=== PATIENT | male | born 1995 ===

== ENCOUNTER 2016-08-11 12:04 | Emergency (ER) | payer MEDICAID ==
[2016-08-11 12:05] VITALS: BMI 34.0
--- NOTE | 2016-08-11 12:32 | ED PDOC ---
Arrival/HPI - General Chief Complaint: Lower Extremity Problem/Injury Time Seen by Provider: 08/11/16 12:27 Historian: Patient - History of Present Illness Narrative History of Present Illness (Text): 08/11/16 12:29 Patient is a 20 yo male states that half hour prior to arrival he "turned quickly" and "felt a crack" in his right knee. Complained of immediate pain and when he puts weight on his right leg in specific positions he experiences pain. Denies hip or ankle pain. Denies fall or direct impact. Denies numbness or weakness. Past Medical History - Past History Past History: No Previous - Infectious Disease Hx of Infectious Diseases: None - Tetanus Immunization Tetanus Immunization: Up to Date - Psychiatric Hx Depression: No Hx Emotional Abuse: No Hx Physical Abuse: No Hx Substance Use: No - Past Surgical History Past Surgical History: No Previous - Anesthesia Hx Anesthesia: No Hx Anesthesia Reactions: No Hx Malignant Hyperthermia: No - Suicidal Assessment Feels Threatened In Home Enviroment: No Family/Social History Family/Social History: Unknown Family HX Smoking Status: Never Smoked Hx Alcohol Use: No Hx Substance Use: No Allergies/Home Meds Allergies/Adverse Reactions: Allergies SHRIMPS Allergy (Uncoded 08/11/16 12:20) RASH Review of Systems - Review of Systems Constitutional: absent: Fevers Respiratory: absent: SOB Cardiovascular: absent: Chest Pain Gastrointestinal: absent: Abdominal Pain Musculoskeletal: Other (right knee pain, no hip or calf or ankle pain). absent : Back Pain, Neck Pain Skin: absent: Rash Neurological: absent: Headache, Dizziness, Focal Weakness Endocrine: absent: Polyuria Physical Exam Vital Signs Reviewed: Yes Vital Signs Temp Pulse Resp BP Pulse Ox 08/11/16 12:15 98.1 F 85 19 132/71 100 Temperature: Afebrile Appearance: Positive for: Well-Appearing, Uncomfortable Pain Distress: Mild - Systems Exam Head: Present: Atraumatic Pupils: Present: PERRL Neck: Present: Normal Range of Motion Respiratory/Chest: No: Respiratory Distress Cardiovascular: Present: Regular Rate and Rhythm Abdomen: No: Tenderness Lower Extremity: Present: NORMAL PULSES, Neurovascularly Intact, Other (patient with pain to medial aspect of right knee and anterior right knee, no clicking, able to flex and extend knee against resistance, has some pain with valgus stressing, no warmth or edema, strong distal pulses, patient with NEGATIVE anterior drawer's sign). No: CALF TENDERNESS Neurological: Present: Motor Func Grossly Intact, Normal Sensory Function. No: Gait Normal Skin: Present: Warm Psychiatric: Present: Alert Medical Decision Making ED Course and Treatment: 08/11/16 13:23 Patient denies fall or direct trauma. NV intact. No warmth or erythema. Able to range knee without clicking. XRays negative for unstable fracture. Suspect ligamentous injury, will place in knee immobizer, given crutches and instructions on use. Stressed need for orthopedic follow-up. - RAD Interpretation Radiology Orders: 08/11/16 12:27 KNEE W PATELLA RIGHT 3 VIEW [RAD] Stat Disposition/Present on Arrival - Present on Arrival Any Indicators Present on Arrival: No History of DVT/PE: No History of Uncontrolled Diabetes: No Urinary Catheter: No History of Decub. Ulcer: No History Surgical Site Infection Following: None - Disposition Have Diagnosis and Disposition been Completed?: Yes Diagnosis: Right knee sprain Disposition: HOME/ ROUTINE Disposition Time: 13:00 Patient Plan: Discharge Patient Problems: Current Active Problems Problem Status Onset Right knee sprain Acute Condition: GOOD Discharge Instructions (ExitCare): Knee Sprain (ED) Additional Instructions: Rest. Use immobilizer and crutches as directed. You MUST follow-up with an orthopedic physician to re-evaluate likely ligament injury. For any increase in pain, swelling, any numbness or weakness, any fevers, any persistent or worsening of symptoms, get rechecked. Follow-up with orthopedic doctor this week. Prescriptions: Naproxen [Naprosyn Tab] 250 mg PO BID PRN #10 tab PRN Reason: Pain, Mild (1-3) Referrals: [facility] [Outside] - Follow up with primary [facility] [place] [Outside] - Follow up with primary Forms: WORK NOTE
[2016-08-11 12:39] VITALS: O2SAT 100
[2016-08-11 13:40] VITALS: BP 124/83; PULSE 76; RESP 20; TEMP 98
--- NOTE | 2016-08-11 16:14 | RAD ---
PROCEDURE: Right Knee Radiographs. Study is limited by motion artifact HISTORY: twisted right knee unable to bear weight COMPARISON: None. FINDINGS: BONES: Normal. No fracture. JOINTS: Normal. No osteoarthritis. JOINT EFFUSION: None. OTHER FINDINGS: None. IMPRESSION: Slightly limited motion degraded study. No evidence of acute displaced fracture nor dislocation.
== END 2016-08-11 13:41 | disposition home or self-care (01) ==
LOC: ED 12:04
DX: S83.91XA Sprain of unspecified site of right knee, initial encounter (principal); X58.XXXA Exposure to other specified factors, initial encounter